=== PATIENT | male | born 1990 | race Two or more races ===

== ENCOUNTER 2021-06-13 22:09 | Emergency (ER) | payer SELFPAY ==
[2021-06-14 04:10] LABS: BLOOD UREA NITROGEN,BUN 12 mg/dL (7.0-18.0); CARBON DIOXIDE,CO2 26.2 mmol/L (21.0-32.0); CHLORIDE,CL 101 mmol/L (98-107); GLUCOSE RANDOM 100 mg/dL (74-106); POTASSIUM,K 3.5 mmol/L (3.5-5.1); SODIUM,NA 135 mmol/L (136-148)
== END 2021-06-14 05:05 | disposition home or self-care (01) ==
LOC: MW.ED 22:09
DX: M54.50 Low back pain, unspecified (principal)
CPT/HCPCS: 36415; 74176; 74176-26; 80053; 81001; 85025; 99284-25